=== PATIENT | female | born 1960 | race Caucasian/White ===

== ENCOUNTER 2024-02-26 07:39 | Outpatient (RCR) | payer OTHER, SELFPAY ==
--- NOTE | 2024-02-26 10:10 | PC.NURSE ---
Pt is here for straight cath, she tolerated this well and sterile technique was maintained. Urine was sent to lab. She was discharged home ambulatory.
[2024-02-26 10:30] LABS: Bilirubin Urine NEGATIVE (NEGATIVE); Blood Urine TRACE-I (NEGATIVE); Clarity Urine SL CLOUDY (CLEAR); Color Urine LT. YELLOW (YELLOW); Glucose Urine UA NEGATIVE (NEGATIVE); Ketones Urine NEGATIVE (NEGATIVE); Leukocyte Esterase Urine MODERATE (NEGATIVE); Nitrite Urine NEGATIVE (NEGATIVE); Protein Urine NEGATIVE (NEG/TRACE)
[2024-02-26 10:32] LABS: Urine Microscopic Indicated YES
[2024-02-26 10:48] LABS: RBC Urine 0-2 #/HPF (0-2)
[2024-02-26 10:49] LABS: Bacteria Urine TRACE #/HPF (NONE SEEN); Cast Seen? NONE SEEN #/LPF (NONE SEEN); Crystals Seen? None Seen #/HPF (None Seen); Mucus Urine NONE SEEN (NONE SEEN); Squamous Epithelial Cell Urine MANY #/LPF (NONE/RARE); Urine Culture Indicated YES
== END 2024-03-03 23:59 | disposition home or self-care (01) ==
LOC: HEMC 07:39
PROVIDERS: Visit Provider Personal Emergency Response Attendant
DX: R35.0 Frequency of micturition (principal)
CPT/HCPCS: 51701; 81001; 87086